=== PATIENT | male | born 1940 | race Caucasian/White ===

== ENCOUNTER 2016-12-20 13:32 | Emergency (ER) | payer OTHER ==
[~2016-12-20] VITALS: Ht 167.6 cm; Wt 70.0 kg
[2016-12-20 13:49] LABS: ABSOLUTE BASOPHIL COUNT 0 /CUMM (0.0-0.2); ABSOLUTE EOSINOPHIL COUNT 0.4 /CUMM (0.0-0.7); ABSOLUTE GRANULOCYTE CT 4.9 /CUMM (1.4-6.5); ABSOLUTE LYMPH COUNT 3.5 /CUMM (1.2-3.4); ABSOLUTE MONOCYTE COUNT 0.6 /CUMM (0.10-0.60); BASOPHIL % 0.3 % (0.0-2.0); EOSINOPHIL % 4.2 % (0-5); HEMATOCRIT 37.9 % (42-52); MEAN CORPUSCULAR HGB 31.2 PG (27.0-31.0); MEAN CORPUSCULAR HGB CONC 32.8 G/DL (33.0-37.0); MEAN CORPUSCULAR VOLUME 94.9 FL (80.0-94.0); MEAN PLATELET VOLUME 11.5 FL (7.4-10.4); PLATELET COUNT 150 /CUMM (130-400); RBC DISTRIBUTION WIDTH 14.7 % (11.5-14.5); RED BLOOD CELL CT 3.99 /CUMM (4.70-6.10); WHITE BLOOD CELL COUNT 9.4 /CUMM (4.8-10.8)
--- NOTE | 2016-12-20 14:14 | ED GENERAL ADULT ---
History of Present Illness General Chief Complaint: Cardiopulmonary Resuscitation Stated Complaint: BIBA WITH CARDIOPULMONARY Source: family, old records, EMS Exam Limitations: clinical condition Vital Signs & Intake/Output Vital Signs & Intake/Output Vital Signs Date Time Temp Pulse Resp B/P B/P Pulse O2 O2 Flow FiO2 Mean Ox Delivery Rate 12/20 1442 /12/20 1355 00/12/20 1349 60/00 12/20 1333 38 60/00 Allergies Coded Allergies: codeine (Intermediate, SEVERE VOMITING 12/20/16) Triage Nurses Notes Reviewed? yes HPI: Patient was out working in his yard. His found him laying on the ground pulseless and apneic. EMS was contacted. Patient was found asystolic. CPR was initiated and the patient was intubated. IV was inserted. Patient received a total of 3 doses of 1 mg of epinephrine. Patient had ROSC 3 different times. Patient also received atropine during a bradycardic episode. Patient would lose his pulse after just a few minutes of circulation. Upon arrival to the emergency department patient unresponsive with fixed pupils. Patient had a weak carotid pulse. Patient cyanotic. Lungs were coarse sounding with ventilation. There was air escaping around the tube. Patient had no response to pain. Past History Travel History Traveled to [place] past 21 day No Medical History Any Pertinent Medical History? see below for history Cardiovascular: CAD, hypertension Pneumonia Vaccine: 05/15/08 Influenza Vaccine: 04/11/08 Surgical History Surgical History: PTCA WITH STENT Psychosocial History Who do you live with Spouse Services at Home None What is your primary language Haitian Tobacco Use: Cognitive Impairment Family History Hx Contributory? No Review of Systems Review of Systems Constitutional: Reports: see HPI. Physical Exam Physical Exam General Appearance: intubated, severe distress Head: ABRASION ABPOVE LEFT EYE Eyes: Bilateral: other (FIXED AND DILATED). Ears, Nose, Throat: normal pharynx, normal ENT inspection Neck: normal inspection, COLLARED Respiratory: rhonchi Cardiovascular: WEAK CAROTID PULSE Gastrointestinal: soft Extremities: PALE Neurologic/Psych: UNRESPONSIVE, NO WITHDRAWL FROM PAIN Core Measures ACS in differential dx? Yes CVA/TIA Diagnosis: No Severe Sepsis Present: No Septic Shock Present: No Progress Differential Diagnoses I considered the following diagnoses in my evaluation of the patient: [AMI, ELECTROLYTE ABORMALITY, TRAUMA] Plan of Care: Orders Procedure Date/time Status TROPONIN LEVEL 12/20 1343 Complete COMPREHENSIVE METABOLIC PANEL 12/20 1343 Complete CBC WITHOUT DIFFERENTIAL 12/20 1343 Complete EKG 12/20 1336 Active Current Medications Sig/Ariana Start time Last Medication Dose Stop Time Status Admin Amiodarone HCl/ 360 MG Q12H 12/20 1430 UNVr 12/20 Dextrose 1355 (Nexterone) N/A 1 UNIT (No Carrier) Laboratory Tests 12/20/16 1340: Anion Gap 18 H, Estimated GFR 54 L, BUN/Creatinine Ratio 13.8, Glucose 182 H, Calcium 8.3 L, Total Bilirubin 0.8, AST 58, ALT 58, Alkaline Phosphatase 77, Troponin I 0.05, Total Protein 5.4 L, Albumin 3.0 L, Globulin 2.4, Albumin/ Globulin Ratio 1.3, CBC w Diff NO MAN DIFF REQ, RBC 3.99 L, MCV 94.9 H, MCH 31.2 H, RDW 14.7 H, MPV 11.5 H, Gran % 52.0, Lymphocytes % 37.4, Monocytes % 6.1, Eosinophils % 4.2, Basophils % 0.3, Absolute Granulocytes 4.9, Absolute Lymphocytes 3.5 H, Absolute Monocytes 0.6, Absolute Eosinophils 0.4, Absolute Basophils 0, PUBS MCHC 32.8 L Initial ED EKG: SR, ST ELEVATION AVR, ST DEPRESSION ALL OTHER LEADS Comments: LOST PULSES OVER 3 OCCASIONS, WENT INTO V FIB ONCE AND WAS DEFIBRILATED, ATTEMPTED PAQCED - ELECTRICAL CAPTURE NO MECAHNICAL CAPTURE. PT PROUNCED, FAMILY AWARE AND AT BEDSIDE, RASHAUN MORALES NOTIFIED. Departure Departure Disposition: Condition: Stable Clinical Impression Primary Impression: Cardiac arrest Referrals: RASHAUN MORALES,KELSIE German (PCP/Family) Departure Forms: General Discharge Information Critical Care Note Critical Care Note Critical Care Time: non-applicable Total CPR Time (mins): 30
[2016-12-20 14:42] VITALS: BP 00/00
== END 2016-12-20 14:08 | disposition expired ==
LOC: ERH 13:32
PROVIDERS: Emergency Medicine
DX: I46.9 Cardiac arrest, cause unspecified (principal)
CPT/HCPCS: 1387; 93005; 93010; 94799; 96374; 96375; 96376; 99291